=== PATIENT | female | born 1990 | race Caucasian/White ===

== ENCOUNTER → 2018-02-07 16:00 | Outpatient (CLI) | payer SELFPAY ==
[2018-02-08 16:01] LABS: Chlamydia Trachomatis by PCR Negative (Negative); Neisserai gonorrhoeae by PCR Negative (Negative); Probe Check PASS; Sample Adequacy Control PASS; Specimen Processing Control PASS
[2018-02-10 10:05] LABS: HPV Reflexed? NOT INDICATED
== END ==
PROVIDERS: Family Provider Family Medicine; PCP Family Medicine; Visit Provider Obstetrics & Gynecology
DX: Z12.4 Encounter for screening for malignant neoplasm of cervix (principal); Z11.3 Encounter for screening for infections with a predominantly sexual mode of transmission
CPT/HCPCS: 87491; 87591; 88175; G0145

== ENCOUNTER → 2021-02-27 | Outpatient (CLI) | payer SELFPAY ==
[2017-04-07 01:41] VITALS: BMI 38.7
[2021-03-04 03:07] LABS: Chlamydia By Nucleic Acid AMP Negative (Negative)
[2021-03-04 11:35] LABS: Gonococcus By Nucleic Acid AMP Negative (Negative)
== END | disposition home or self-care (01) ==
LOC: LABSPEC 16:05
PROVIDERS: PCP Family Medicine; Visit Provider Obstetrics & Gynecology
DX: Z12.4 Encounter for screening for malignant neoplasm of cervix (principal); Z11.3 Encounter for screening for infections with a predominantly sexual mode of transmission
CPT/HCPCS: 87491; 87591; 88175; G0145

== ENCOUNTER → 2021-06-15 10:42 | Outpatient (CLI) | payer SELFPAY ==
[2017-04-07 01:41] VITALS: BMI 38.7
[2021-06-15 11:42] LABS: Hematocrit 34.7 % (37-47); Hemoglobin 11.6 g/dL (12.0-15.0); Mean Corp Hgb Conc 33.4 g/dL (32-36); Mean Corpuscular Hgb 31.2 pg (27.0-32.0); Mean Corpuscular Volume 93.3 fL (81-99); Mean Platelet Vol. 10.2 fl (6.2-12.0); Platelet Count 284 K/mm3 (150-450); RBC Distribution Width CV 12.8 % (11.6-14.6); RBC Distribution Width SD 43.3 fl (35.1-43.9); Red Blood Count 3.72 M/mm3 (4.2-5.4); White Blood Count 8.5 K/mm3 (4.4-11.0)
[2021-06-15 11:58] LABS: Glucose Challenge Gest 1H 50g 174 mg/dL (70-140)
== END ==
PROVIDERS: PCP Family Medicine; Visit Provider Obstetrics & Gynecology
DX: Z34.82 Encounter for supervision of other normal pregnancy, second trimester (principal)
CPT/HCPCS: 36415; 82950; 85027

== ENCOUNTER → 2021-06-22 07:02 | Outpatient (CLI) | payer SELFPAY ==
[2021-06-22 07:37] LABS: Glucose GTT-Gestation. Fasting 108 mg/dL (<105)
== END ==
PROVIDERS: PCP Family Medicine; Referring Provider Obstetrics & Gynecology; Visit Provider Obstetrics & Gynecology
DX: Z34.82 Encounter for supervision of other normal pregnancy, second trimester (principal)
CPT/HCPCS: 36415; 82951; 82952

== ENCOUNTER → 2021-09-02 16:27 | Outpatient (CLI) | payer SELFPAY | PROVIDERS: PCP Family Medicine; Visit Provider Obstetrics & Gynecology | DX: Z36.85 Encounter for antenatal screening for Streptococcus B (principal) | CPT/HCPCS: 87081 ==

== ENCOUNTER 2021-09-20 18:55 | Inpatient (IN) | payer SELFPAY ==
[2021-09-20 19:44] VITALS: BMI 39.8
[2021-09-20 19:48] VITALS: BP 131/75; TEMP 37.2
[2021-09-20 19:49] VITALS: PULSE 106; PULSE 98; O2SAT 97; O2SAT 98
[2021-09-20] MEDS: Lactated Ringers 1,000 ML 50 ML IV (19:55)
[2021-09-20 20:20] LABS: Absolute Lymphocyte Count 1.97 X10^3/uL (0.83-4.51); Absolute Neutrophil Count 6.9 X10^3/uL (2.0-7.7); Basophil# 0.01 X10^3/uL; Basophil% 0.1 % (0-1); Eosinophil# 0.04 X10^3/uL; Eosinophils% 0.4 % (0-5); Hematocrit 34.3 % (37-47); Hemoglobin 11.4 g/dL (12.0-15.0); Lymphocyte # 1.97 X10^3/ul (0.83-4.51); Mean Corp Hgb Conc 33.2 g/dL (32-36); Mean Corpuscular Hgb 29.5 pg (27.0-32.0); Mean Corpuscular Volume 88.6 fL (81-99); Mean Platelet Vol. 10.9 fl (6.2-12.0); Monocyte# 0.42 X10^3/uL; Monocyte% 4.5 % (0-10); NRBC Flagged by Analyzer 0 % (0-5); Neutrophil # 6.91 X10^3/uL (2.7-7.7); Neutrophil % 73.6 % (47-70); Platelet Count 267 K/mm3 (150-450); RBC Distribution Width CV 13.4 % (11.6-14.6); RBC Distribution Width SD 43.3 fl (35.1-43.9); Red Blood Count 3.87 M/mm3 (4.2-5.4); White Blood Count 9.4 K/mm3 (4.4-11.0)
[2021-09-20 20:26] LABS: Bedside Glucose 71 mg/dL (70-110)
[2021-09-20] MEDS: miSOPROStol 25 MCG TABLET PO (20:39)
[2021-09-20 21:15] VITALS: TEMP 36.9
[2021-09-20 21:16] VITALS: BP 127/70; PULSE 91
--- NOTE | 2021-09-20 21:17 | PCM.HP.BLA ---
History and Physical Date of Admission: 09/20/21 Chief complaint: Induction of labor at term History of present illness: 31-year-old G4, P1 at 39 weeks 0 days with SON 09/27/2021 by LMP arrives for induction of labor at term. Denies headache, vision change, chest pain, shortness of breath, nausea vomiting, right upper quadrant pain. Patient states good movement is complicated by GDM A2 Obstetric history: G1: 18-week 03/08/2016 G2: 40-week female 04/07/2017 G3: 19-week 03/02/2018 G4: Current Past medical history: GDM A2 Medications: Levemir 10 units every morning and 15 units nightly, Humalog 10 units 3 times daily Past surgical history: D&C x2 Allergies: No known drug allergies Social history: Denies smoking, alcohol use, drug use Family history: Denies of DVT or PE Review of systems: Besides above pertinent positives a full review systems performed and found to be negative Physical exam: Vitals: Blood pressure 127/70 pulse 91 General: Normal-appearing no acute distress HEENT: Normocephalic atraumatic no cervical of adenopathy Cardiac/respiratory: No use of accessory muscles, nonlabored breathing Abdomen: Soft, nontender, gravid Extremities: No peripheral edema normal peripheral pulses Psych: Normal affect normal demeanor nonpressured speech Labs: White blood cell count 9.4 hemoglobin 11.4 hematocrit 34.3% platelets 267. Blood type O+ antibody negative Assessment and plan: 31-year-old G4, P1 at 39 weeks and 0 days for induction of labor at term with GDM A2 Admit labor and delivery CEFM GBS negative GDM A2: Blood sugars within normal limits, will treat as needed Routine orders Anesthesia to see
[2021-09-20 22:16] VITALS: BP 118/61; PULSE 85; TEMP 36.6
[2021-09-20 22:18] VITALS: PULSE 80; O2SAT 99
[2021-09-20 22:51] LABS: Bedside Glucose 68 mg/dL (70-110)
[2021-09-20 22:51] LABS: Bedside Glucose 88 mg/dL (70-110)
[2021-09-20 22:51] LABS: Bedside Glucose 81 mg/dL (70-110)
[2021-09-21] VITALS (51 sets, daily range): BP systolic 109–198; BP diastolic 57–112; PULSE 77–153; TEMP 35.9–36.9; O2SAT 94–100
[2021-09-21] MEDS: miSOPROStol 25 MCG TABLET PO ×2 (00:53→04:47)
[2021-09-21 02:21] LABS: Bedside Glucose 70 mg/dL (70-110)
[2021-09-21 02:51] LABS: Bedside Glucose 103 mg/dL (70-110)
[2021-09-21 07:00] LABS: Bedside Glucose 74 mg/dL (70-110)
[2021-09-21 10:00] LABS: Bedside Glucose 105 mg/dL (70-110)
[2021-09-21] MEDS: Oxytocin 30 units/NS 500 ml 30 UNITS/500 ML IV.SOLN IV (10:12)
[2021-09-21] MEDS: Lactated Ringers 1,000 ML 200 ML IV ×2 (11:49→17:06)
[2021-09-21 12:16] LABS: Bedside Glucose 96 mg/dL (70-110)
[2021-09-21 15:21] LABS: Bedside Glucose 78 mg/dL (70-110)
[2021-09-21] MEDS: Ondansetron 4 MG/2 ML Vial IV ×2 (15:42→20:31)
[2021-09-21 18:40] LABS: Bedside Glucose 79 mg/dL (70-110)
[2021-09-21] MEDS: Lactated Ringers 500 ML 999 ML IV (20:07)
[2021-09-21] MEDS: fentaNYL-bupivacaine (epidural) 100 ML BAG EPIDURAL (21:23)
[2021-09-21] MEDS: fentaNYL 100 MCG/2 ML Ampul IV (22:00)
[2021-09-21] MEDS: Oxytocin 30 units/NS 500 ml 30 UNITS/500 ML IV.SOLN 334 UNITS IV (22:45)
--- NOTE | 2021-09-21 22:55 | EX.PCM.OBRPT ---
Maternal Data Information Final SON: 09/27/21 Vaginal Delivery Operative Information Date of Procedure: 09/21/21 Pre-Operative Diagnosis: Reynoso intrauterine , GDMA2 Post-Operative Diagnosis: Reynoso intrauterine , GDMA2 Surgery / Procedure Performed: Spontaneous Vaginal Delivery Type of Anesthesia: Epidural Estimated Blood Loss: 300cc Findings Description of Procedure: Spontaneous vaginal delivery of viable female. No nuchal cord. Baby to mom. Cord clamped and cut. Spontaneous delivery of placenta. Second-degree laceration repaired in the usual fashion, hemostatic. (1 minute): 9 (5 minute): 9
[2021-09-21 23:41] LABS: Bedside Glucose 92 mg/dL (70-110)
[2021-09-22] VITALS (10 sets, daily range): BP systolic 99–131; BP diastolic 56–67; PULSE 66–91; RESP 14–18; TEMP 36.6–36.9
[2021-09-22 00:21] LABS: Bedside Glucose 105 mg/dL (70-110)
[2021-09-22 05:46] LABS: Bedside Glucose 113 mg/dL (70-110)
[2021-09-22] MEDS: Acetaminophen 500 MG Tablet 1000 MG PO ×3 (05:49→19:11)
--- NOTE | 2021-09-22 08:48 | PCM.PN.OB ---
Subjective Subjective Patient without complaints. Breast-feeding going well. Plans to go home tomorrow. Objective Data Objective Data Vital Signs: Vital Signs Temp Pulse Resp BP Pulse Ox 97.9 F 77 16 107/67 100 09/22/21 08:00 09/22/21 08:00 09/22/21 08:00 09/22/21 08:00 09/21/21 22:36 Oxygen Delivery Method Room Air Weight: 246 lb 9.6 oz Body Mass Index (BMI) 39.8 Intake & Output: Intake and Output for Last 24 Hours 09/20/21 09/21/21 09/22/21 23:59 23:59 23:59 Intake Total 3665.09 / 3665.09 500 / 500 Output Total 1100 / 1100 Balance 3665.09 / 3665.09 -600 / -600 Lab / Micro Data Result Diagrams: 09/20/21 19:55 Labs: Laboratory Results - last 24 hr 09/21/21 09:22: POC Glucose 105 09/21/21 12:10: POC Glucose 96 09/21/21 15:14: POC Glucose 78 09/21/21 18:34: POC Glucose 79 09/21/21 22:18: POC Glucose 92 09/21/21 23:44: POC Glucose 105 09/22/21 05:41: POC Glucose 113 H Micro: Microbiology 09/20/21 20:00 Nasal Secretion SARS-CoV-2 Antigen (Rapid) - Final
[2021-09-23 01:35] VITALS: BP 105/63; PULSE 74; RESP 18; TEMP 36.8
--- NOTE | 2021-09-23 08:32 | PCM.PN.OB ---
Subjective Subjective Patient without complaints. Breast-feeding going well. Plans to go home today. Home-going instructions given. Patient is postoperative day #2 status post routine spontaneous vaginal delivery. Objective Data Objective Data Vital Signs: Vital Signs Temp Pulse Resp BP Pulse Ox 98.3 F 74 18 105/63 100 09/23/21 01:35 09/23/21 01:35 09/23/21 01:35 09/23/21 01:35 09/21/21 22:36 Oxygen Delivery Method Room Air Weight: 246 lb 9.6 oz Body Mass Index (BMI) 39.8 Intake & Output: Intake and Output for Last 24 Hours 09/21/21 09/22/21 09/23/21 23:59 23:59 23:59 Intake Total 3665.09 / 3665.09 500 / 500 Output Total 1100 / 1100 Balance 3665.09 / 3665.09 -600 / -600 Lab / Micro Data Result Diagrams: 09/20/21 19:55 Micro: Microbiology 09/20/21 20:00 Nasal Secretion SARS-CoV-2 Antigen (Rapid) - Final
--- NOTE | 2021-09-23 08:32 | PCM.DC ---
Discharge Instructions Diet Discharge Diet: No restrictions Activity Discharge Activity: May Drive (In 1 to 2 days if not taking narcotic pain medication), May Shower and May Take a Tub Bath May resume sexual activity in: 4-6 weeks Additional Activity Instructions:: Nothing in the vagina for 4-6 weeks. You may return to work/school in 6 weeks. Dressing / Incision Call your doctor if you observe: Fever of 101 or Higher, Inability to urinate, Inability to have a bowel movement and Using more than 1 pad per hour Follow Up Care Please Follow Up With: Juan Vaughan MD When: Call [phone] to make an appointment with your doctor in 6 weeks. Test Results: Test results from this visit will be discussed in further detail at your follow-up appointment, if applicable. Discharge Plan Admission Admit Date/Time: 09/20/21 18:55 Primary Reason for Your Visit: Vaginal Delivery Attending Provider: Alida Gary Primary Care Provider: Cortez Ferrara Discharge Orders/Prescriptions Prescriptions: Continued Prenatabs FA 1 TABLET tablet 1 tab PO DAILY RF: 0 Probiotic 2 cap DAILY RF: 0 Discontinued insulin lispro [Humalog Pen] 100 unit/mL Insulin Pen 10 unit SUBCUT TID RF: 0 Levemir Flexpen 100 unit/mL (3 mL) Insulin Pen See Rx Instructions .ROUTE .COMPLEX RF: 0 Referrals / Follow Up: Cortez Ferrara MD [Primary Care Provider] - Disposition Disposition (needs filled in before D/C Order can be placed): Home, Self Care
[2021-09-23 09:09] VITALS: BP 117/69; PULSE 92; RESP 18; TEMP 36.9
== END 2021-09-23 10:45 | disposition home or self-care (01) | DRG 807 ==
PROVIDERS: Obstetrics & Gynecology; Admitting Provider Obstetrics & Gynecology; PCP Family Medicine; Visit Provider Student in an Organized Health Care Education/Training Program
DX: O24.420 Gestational diabetes mellitus in childbirth, diet controlled (principal); Z37.0 Single live birth; Z3A.39 39 weeks gestation of pregnancy; Z79.4 Long term (current) use of insulin; O70.1 Second degree perineal laceration during delivery
CPT/HCPCS: 59025; 59050; 82962; 85025; 86850; 86900; 86901; 87426; 99218; J7120; G0378; J2405